=== PATIENT | male | born 1995 | race Two or more races ===

== ENCOUNTER 2022-11-18 20:25 | Emergency (ER) | payer MEDICAID ==
[~2022-11-18] VITALS: Ht 182.9 cm; Wt 97.7 kg
[2022-11-18] MEDS ORDERED: PERTUSS(ACELL),DIPH,TET VAC/PF 0.5 ML SYRINGE IM. ONE (22:30)
[2022-11-18] MEDS ORDERED: IBUP-1492 PO (23:12)
[2022-11-18] MEDS ORDERED: ACET-3385 PO (23:12)
[2022-11-18 23:41] VITALS: BP 128/72; PULSE 75; RESP 18; TEMP 98.3
== END 2022-11-18 23:43 | disposition home or self-care (01) ==
LOC: EMS 20:27
DX: S92.401A Displaced unspecified fracture of right great toe, initial encounter for closed fracture (principal); W22.8XXA Striking against or struck by other objects, initial encounter; Y93.02 Activity, running; Y92.89 Other specified places as the place of occurrence of the external cause; Y99.8 Other external cause status
CPT/HCPCS: 29550; 90471; 90715; 99283